=== PATIENT | male | born 1945 | race Caucasian/White ===

== ENCOUNTER 2016-11-29 10:59 | Inpatient (IN) | payer OTHER ==
[2016-11-29] VITALS (16 sets, daily range): BP systolic 70–126; BP diastolic 35–89
[~2016-11-29] VITALS: Ht 182.9 cm; Wt 131.4 kg
[2016-11-29] MEDS ORDERED: LIDOCAINE 2% JELLY 11ml (GLYDO) ONE (11:30)
[2016-11-29] MEDS ORDERED: LIDOCAINE 2% JELLY 11ml (GLYDO) UR ONE (12:00)
[2016-11-29 12:08] LABS: CONDITION Y; DEFINITIVE SEE PRINTOUT; Hematocrit 39.2 % (41.0-53.0); Hemoglobin 13.2 g/dL (13.5-17.5); Mean Corpuscular Hgb Conc. 33.6 g/dL (32.0-36.0); Mean Corpuscular Volume 92.3 fL (80.0-100.0); Mean Platelet Volume 11.4 fL (7.4-10.4); Platelet Count (auto) 138 10^3/uL (140-450); SUSPECT SEE PRINTOUT
[2016-11-29 12:13] LABS: White Blood Cell 51.6 10^3/uL (4.4-10.8)
[2016-11-29 12:17] LABS: Metamyelocytes % 0; Myelocytes % 0; Promyelocytes % 0; Reactive Lymphocytes 0
[2016-11-29] MEDS ORDERED: SODIUM CHLORIDE 0.9% 1,000 ML IVB ONE (12:21)
[2016-11-29 12:38] LABS: Albumin 3.8 g/dL (3.4-5.0); Alkaline Phosphatase 65 U/L (45-117); Anion Gap 18 (5-15); Aspartate Aminotransferase 32 U/L (15-37); BUN/Creatinine Ratio 22.3; Bilirubin, Total 0.5 mg/dL (0.2-1.0); Calcium 8.9 mg/dL (8.5-10.1); Carbon Dioxide 19 mmol/L (21-32); Chloride 94 mmol/L (98-107); GFR African American 16 mL/min; GFR Non-African American 13 mL/min; Glucose 249 mg/dL (74-106); Sodium 131 mmol/L (136-145); Total Protein 7.4 g/dL (6.4-8.2)
[2016-11-29 13:03] LABS: Blood Urea Nitrogen 106 mg/dL (7-18); Potassium 7.5 mmol/L (3.5-5.1)
[2016-11-29 13:10] LABS: INR 1.04 (0.9-1.15); Partial Thromboplastin Time 24.9 sec (22.64-33.71); Prothrombin Time 11.3 sec (9.37-12.3)
[2016-11-29] MEDS ORDERED: cefTRIAXone 1GM/50ML D5W 50 ML IV ONE (13:15)
[2016-11-29] MEDS ORDERED: DEXTROSE (50%) 50ML SYRG IV ONE (13:15)
[2016-11-29] MEDS ORDERED: InsuLIN REG 1unit/0.01ml Soln (100units/ml) IV ONE ×3 (13:15→18:00)
[2016-11-29 13:36] LABS: Platelet Estimate Adequate
[2016-11-29] MEDS ORDERED: SODIUM CHLORIDE 0.9% 1,000 ML IV ONE ×2 (13:45→14:15)
[2016-11-29] MEDS ORDERED: PIPERACILLIN-TAZOB 2.25GM 50 ML IV ONE (14:00)
[2016-11-29] MEDS ORDERED: SODIUM CHLORIDE 0.9% 1,000 ML IV SCH ×2 (14:01→15:30)
[2016-11-29 14:13] LABS: Lactic Acid w/Reflex 4.4 mmol/L (0.4-2.0)
[2016-11-29] MEDS ORDERED: LORazepam 0.5 MG TAB PO PRN (14:15)
[2016-11-29] MEDS ORDERED: MORPHINE SULF INJ 2 MG/ML SYRINGE 1ML IV PRN ×2 (14:15)
[2016-11-29] MEDS ORDERED: PANTOPRAZOLE 40 MG/10 ML VIAL IV ONE (14:15)
[2016-11-29] MEDS ORDERED: SODIUM POLYSTYRENE SULF 15GM/60ML SUSP PO ONE (14:15)
[2016-11-29] MEDS ORDERED: LACTULOSE 20Gm/30ML SOLN PO PRN (14:15)
[2016-11-29] MEDS ORDERED: ALBUTEROL SULF 2.5 MG/0.5ML(0.5%) NEB SOLN NEB PRN (14:15)
[2016-11-29] MEDS ORDERED: ALBUTEROL SULF 2.5 MG/0.5ML(0.5%) NEB SOLN NEB ONE (14:15)
[2016-11-29] MEDS ORDERED: NITROGLYCERIN 0.4 MG SL TAB SL PRN (14:15)
[2016-11-29] MEDS ORDERED: PROMETHAZINE HCL 25 MG/ML 1ML IV PRN (14:15)
[2016-11-29] MEDS ORDERED: TEMAZEPAM 15 MG CAP PO PRN (14:15)
[2016-11-29] MEDS ORDERED: ACETAMINOPHEN 500 MG TAB PO PRN (14:15)
[2016-11-29] MEDS ORDERED: HYDROcodone-ACET 5/325MG TAB PO PRN (14:15)
[2016-11-29] MEDS ORDERED: DEXTROSE (50%) 50ML SYRG IV PRN (14:15)
[2016-11-29] MEDS ORDERED: SODIUM BICARBONATE 8.4 % INJ 50ML VIAL IV ONE ×2 (14:15→21:15)
[2016-11-29 14:23] LABS: REFLEX LACTIC ACID YES OR NO YES
[2016-11-29] MEDS ORDERED: ENOXAPARIN SOD 30 MG/0.3 ML SYRINGE SC ONE (14:30)
[2016-11-29 14:46] LABS: Allen Test Yes; Base Excess -13.1 mmol/L (-2.0-2.0); Blood 02Sat 92.2 % (96-100); Blood COHb 0.1 % (0.5-1.5); Blood MetHb 0.5 % (0.0-1.5); HCO3 16.2 mmol/L (22-26.0); HHb 7.8 % (0.0-5.0); MODE NASAL CANNULA; O2Hb 91.6 % (94.0-97.0); PCO2 52.4 mmHg (35.0-45.0); PCO2(T) 52.4 mmHg (35.0-45.0); PO2 83.5 mmHg (80.0-100.0); PO2(T) 83.5 mmHg (80.0-100.0); Room 1021-ERT; Sample Type Arterial; pH 7.108 (7.350-7.450)
[2016-11-29] MEDS ORDERED: NOREPINEPHRINE BITARTRATE 250 ML IV ONE (14:47)
[2016-11-29] MEDS: NOREPINEPHRINE BITARTRATE 250 ML IV SCH (14:47)
[2016-11-29] MEDS: PIPERACILLIN-TAZOB 2.25GM 50 ML IV SCH ×2 (14:57→22:22)
[2016-11-29] MEDS: InsuLIN REG 1unit/0.01ml Soln (100units/ml) SC SCH ×3 (14:58→23:38)
[2016-11-29] MEDS ORDERED: ETOMIDATE (2MG/ML) 20ML VIAL IV ONE ×2 (15:08→15:30)
[2016-11-29] MEDS ORDERED: SUCCINYLCHOLINE CHLORIDE 20 MG/ML 10ML VIAL IV ONE ×2 (15:08→15:30)
[2016-11-29] MEDS ORDERED: SODIUM BICARBONATE 8.4% INJ 50ML SYRINGE IV ONE (15:15)
[2016-11-29] MEDS ORDERED: MIDAZOLAM DRIP 50 mg/50mL 50 ML IV ONE (15:22)
[2016-11-29] MEDS: MIDAZOLAM DRIP 50 mg/50mL 50 ML IV SCH (15:22)
[2016-11-29] MEDS: ACCU-CHEK COMFORT CURVE STRIP VI SCH ×3 (16:47→23:38)
[2016-11-29] MEDS ORDERED: ALBUMIN 25% 100 ML IV ONE ×2 (16:50→17:00)
[2016-11-29] MEDS ORDERED: VASOPRESSIN 20 UNIT/ML ONE (16:52)
[2016-11-29] MEDS ORDERED: SODIUM BICARBONATE 50ML VIAL 100 ML in D5W 5% 1,000 ML IV SCH (17:00)
[2016-11-29] MEDS ORDERED: VASOPRESSIN 50 UNITS in SODIUM CHL 0.9% 247.5 ML IV SCH (17:00)
[2016-11-29 17:15] LABS: BUN/Creatinine Ratio 21.4; Calcium 6.5 mg/dL (8.5-10.1)
[2016-11-29] MEDS ORDERED: BUMETANIDE (0.25 MG/ML) INJ 10ML IV ONE (17:15)
[2016-11-29] MEDS: LINEZOLID 600MG/300ML 300 ML IV SCH ×2 (17:19→23:00)
[2016-11-29] MEDS: VASOPRESSIN 50 UNITS in SODIUM CHL 0.9% 247.5 ML IV SCH (17:20)
[2016-11-29 17:25] LABS: Potassium 7.3 mmol/L (3.5-5.1)
[2016-11-29 17:51] LABS: Urine Bilirubin Negative (Negative); Urine Blood 1+ /uL (Negative); Urine Color Yellow (Yellow); Urine Glucose TRACE mg/dL (Normal); Urine Hyaline Cast MOD /lpf (0 - 2); Urine Ketone Negative (Negative); Urine Mucus FEW (None Seen); Urine Nitrite Negative (Negative); Urine RBC 2 /hpf (0 - 3); Urine Squamous Epithelial Cell FEW /hpf (<5); Urine Urobilinogen Normal (Negative)
[2016-11-29] MEDS ORDERED: SODIUM POLYSTYRENE SULF 15GM/60ML SUSP PR ONE (18:00)
[2016-11-29 18:07] LABS: Temperature: 23.5 C (20.0-25.0)
[2016-11-29] MEDS: ALBUTEROL SULF 2.5 MG/0.5ML(0.5%) NEB SOLN NEB SCH (18:33)
[2016-11-29] MEDS: IPRATROPIUM BROM 0.5 MG/2.5ML INH SOL NEB SCH (18:33)
[2016-11-29 19:00] LABS: Uric Acid 10.7 mg/dL (3.5-7.2)
[2016-11-29] MEDS: SODIUM BICARBONATE 50ML VIAL 150 ML in D5W 5% 1,000 ML IV SCH (19:30)
[2016-11-29] MEDS ORDERED: METF-370 PO (20:44)
[2016-11-29] MEDS ORDERED: LISI-646 PO (20:44)
[2016-11-29] MEDS ORDERED: MORP30TA PO (20:44)
[2016-11-29] MEDS ORDERED: ASPI81TA27 PO (20:44)
[2016-11-29] MEDS ORDERED: NORT25CA PO (20:44)
[2016-11-29] MEDS ORDERED: DIAZ10TA3 PO (20:44)
[2016-11-29] MEDS ORDERED: MULT1TAB95 PO (20:44)
[2016-11-29] MEDS ORDERED: DOCU-80 PO (20:44)
[2016-11-29] MEDS ORDERED: VENL75TA PO (20:44)
[2016-11-29 20:51] LABS: Allen Test Modified; Base Excess -17.6 mmol/L (-2.0-2.0); Blood 02Sat 95.5 % (96-100); Blood COHb 0.3 % (0.5-1.5); Blood MetHb 0.4 % (0.0-1.5); CPAP / PEEP 0; HCO3 12.1 mmol/L (22-26.0); HHb 4.5 % (0.0-5.0); MODE VENT - A/C; O2Hb 94.8 % (94.0-97.0); PO2 101.3 mmHg (80.0-100.0); PO2(T) 101.3 mmHg (80.0-100.0); Sample Type Arterial; pH 7.056 (7.350-7.450)
[2016-11-29] MEDS: PHENYLEPHRINE INJ 20 MG in SODIUM CHL 0.9% 250 ML IV SCH (21:00)
[2016-11-29] MEDS ORDERED: SODIUM BICARBONATE 8.4% INJ 50ML SYRINGE ONE (21:00)
[2016-11-29] MEDS ORDERED: ATROPINE SULFATE 0.4 MG/1 ML VIAL ONE (22:15)
[2016-11-29 23:49] LABS: DEFINITIVE SEE PRINTOUT; Hematocrit 35.4 % (41.0-53.0); Mean Corpuscular Hemoglobin 30.4 pg (28.0-32.0); Mean Corpuscular Hgb Conc. 31.1 g/dL (32.0-36.0); Mean Corpuscular Volume 97.9 fL (80.0-100.0); Mean Platelet Volume 10.9 fL (7.4-10.4); Platelet Count (auto) 94 10^3/uL (140-450); Red Cell Distribution Width 15.4 % (11.6-16.0); SUSPECT SEE PRINTOUT
[2016-11-30] VITALS (102 sets, daily range): BP systolic 78–140; BP diastolic 29–101
[2016-11-30] LABS: Calcium 6.5 mg/dL (8.5-10.1); Magnesium 2.5 mg/dL (1.6-2.6)
[2016-11-30 00:01] LABS: Promyelocytes % 0; Reactive Lymphocytes 0
[2016-11-30 00:02] LABS: BUN/Creatinine Ratio 22.3
[2016-11-30 00:07] LABS: Potassium 7.7 mmol/L (3.5-5.1)
[2016-11-30] MEDS: InsuLIN R (HUMAN) 100 UNITS in SODIUM CHL 0.9% 99 ML IV SCH ×2 (00:31→19:00)
[2016-11-30] MEDS ORDERED: DEXTROSE (50%) 50ML SYRG IV PRN (00:45)
[2016-11-30] MEDS ORDERED: ALBUTEROL SULF 2.5 MG/0.5ML(0.5%) NEB SOLN NEB ONE (00:45)
[2016-11-30] MEDS ORDERED: InsuLIN REG 1unit/0.01ml Soln (100units/ml) IV ONE (00:45)
[2016-11-30] MEDS ORDERED: InsuLIN REG 1unit/0.01ml Soln (100units/ml) ONE (00:47)
[2016-11-30 00:59] LABS: Hypersegmented Neutrophils Present; Metamyelocytes % 2; Myelocytes % 2
[2016-11-30 01:00] LABS: Platelet Estimate Decreased; RBC Morphology Normal
[2016-11-30] MEDS: ACCU-CHEK COMFORT CURVE STRIP VI SCH ×16 (01:00→22:30)
[2016-11-30] MEDS ORDERED: SODIUM BICARBONATE 8.4% INJ 50ML SYRINGE ONE (01:42)
[2016-11-30] MEDS ORDERED: SODIUM BICARBONATE 8.4 % INJ 50ML VIAL IV ONE (01:45)
[2016-11-30] MEDS ORDERED: PHENYLEPHRINE IV 250 ML IV ONE ×3 (02:33→06:57)
[2016-11-30] MEDS: PHENYLEPHRINE INJ 20 MG in SODIUM CHL 0.9% 250 ML IV SCH ×6 (03:00→19:00)
[2016-11-30 04:05] LABS: CONDITION Y; DEFINITIVE SEE PRINTOUT; Hematocrit 30.6 % (41.0-53.0); Hemoglobin 10.1 g/dL (13.5-17.5); Mean Corpuscular Hgb Conc. 32.9 g/dL (32.0-36.0); Mean Corpuscular Volume 94.1 fL (80.0-100.0); Mean Platelet Volume 10.8 fL (7.4-10.4); Platelet Count (auto) 112 10^3/uL (140-450); Red Cell Distribution Width 16.6 % (11.6-16.0); SUSPECT SEE PRINTOUT
[2016-11-30 04:22] LABS: White Blood Cell 59.5 10^3/uL (4.4-10.8)
[2016-11-30 04:23] LABS: Metamyelocytes % 0; Myelocytes % 0; Promyelocytes % 0; Reactive Lymphocytes 0
[2016-11-30 04:39] LABS: Albumin 2.7 g/dL (3.4-5.0); Alkaline Phosphatase 48 U/L (45-117); Anion Gap 15 (5-15); Aspartate Aminotransferase 68 U/L (15-37); Bilirubin, Total 0.3 mg/dL (0.2-1.0); Calcium 6.4 mg/dL (8.5-10.1); Carbon Dioxide 20 mmol/L (21-32); Chloride 103 mmol/L (98-107); Cholesterol < 50 mg/dL (< 200); GFR African American 19 mL/min; GFR Non-African American 16 mL/min; Glucose 266 mg/dL (74-106); HDL Cholesterol 15 mg/dL (40-59); LDL Cholesterol 17 mg/dL (< 100); Potassium 5.1 mmol/L (3.5-5.1); Sodium 138 mmol/L (136-145); Total Protein 5.4 g/dL (6.4-8.2); Triglycerides 224 mg/dL (< 150)
[2016-11-30] MEDS: SODIUM BICARBONATE 50ML VIAL 150 ML in D5W 5% 1,000 ML IV SCH (04:42)
[2016-11-30 04:51] LABS: Blood Urea Nitrogen 93 mg/dL (7-18)
[2016-11-30] MEDS: IPRATROPIUM BROM 0.5 MG/2.5ML INH SOL NEB SCH ×4 (05:54→18:32)
[2016-11-30] MEDS: ALBUTEROL SULF 2.5 MG/0.5ML(0.5%) NEB SOLN NEB SCH ×4 (05:54→18:32)
[2016-11-30] MEDS: PIPERACILLIN-TAZOB 2.25GM 50 ML IV SCH ×3 (06:20→21:39)
[2016-11-30 06:39] LABS: Hypersegmented Neutrophils Present
[2016-11-30 06:41] LABS: Platelet Estimate Decreased
[2016-11-30 06:43] LABS: RBC Morphology Normal
[2016-11-30 07:37] LABS: Allen Test Modified; Base Excess -1.4 mmol/L (-2.0-2.0); Blood 02Sat 90.6 % (96-100); Blood COHb 0.4 % (0.5-1.5); Blood MetHb 0.4 % (0.0-1.5); HCO3 24.3 mmol/L (22-26.0); HHb 9.3 % (0.0-5.0); MODE VENT - A/C; O2Hb 89.9 % (94.0-97.0); PCO2 45.3 mmHg (35.0-45.0); PCO2(T) 45.3 mmHg (35.0-45.0); PIP 18; PO2 60.6 mmHg (80.0-100.0); PO2(T) 60.6 mmHg (80.0-100.0); Sample Type Arterial; pH 7.348 (7.350-7.450)
[2016-11-30] MEDS: LINEZOLID 600MG/300ML 300 ML IV SCH ×2 (09:52→21:39)
[2016-11-30] MEDS: PANTOPRAZOLE 40 MG/10 ML VIAL IV SCH (09:52)
[2016-11-30] MEDS ORDERED: ENOXAPARIN SOD 30 MG/0.3 ML SYRINGE SC SCH ×2 (10:00)
[2016-11-30] MEDS ORDERED: AZITHROMYCIN 500MG/D5W 250ML 250 ML IV SCH ×2 (10:00)
[2016-11-30] MEDS: fentaNYL Drip 2500mCg/250mlNS 250 ML IV SCH (14:36)
[2016-11-30] MEDS ORDERED: CALCIUM GLUC 4.65meq/50ml D5AE 50 ML IV ONE (14:45)
[2016-11-30] MEDS: SODIUM BICARBONATE 50ML VIAL 100 ML in SOD CHL 0.45% 1,000 ML IV SCH (15:15)
[2016-11-30] MEDS: MIDAZOLAM DRIP 50 mg/50mL 50 ML IV SCH ×2 (15:40→20:00)
[2016-11-30] MEDS: NOREPINEPHRINE BITARTRATE 250 ML IV SCH ×2 (15:40→20:00)
[2016-11-30] MEDS ORDERED: SODIUM BICARBONATE 50ML VIAL 150 ML in D5W 5% 1,000 ML IV SCH (17:00)
[2016-11-30] MEDS: VASOPRESSIN 50 UNITS in SODIUM CHL 0.9% 247.5 ML IV SCH (17:00)
[2016-11-30 22:48] LABS: CONDITION Y; DEFINITIVE SEE PRINTOUT; Hematocrit 29.5 % (41.0-53.0); Hemoglobin 9.9 g/dL (13.5-17.5); Mean Corpuscular Hemoglobin 31.1 pg (28.0-32.0); Mean Corpuscular Hgb Conc. 33.6 g/dL (32.0-36.0); Mean Corpuscular Volume 92.6 fL (80.0-100.0); Mean Platelet Volume 11.8 fL (7.4-10.4); Platelet Count (auto) 83 10^3/uL (140-450); Red Cell Distribution Width 16.5 % (11.6-16.0); SUSPECT SEE PRINTOUT
[2016-11-30 22:54] LABS: White Blood Cell 41.9 10^3/uL (4.4-10.8)
[2016-11-30 22:56] LABS: Metamyelocytes % 0; Promyelocytes % 0; Reactive Lymphocytes 0
[2016-11-30 23:07] LABS: BUN/Creatinine Ratio 23.4; Calcium 6.1 mg/dL (8.5-10.1)
[2016-11-30 23:09] LABS: Potassium 5.6 mmol/L (3.5-5.1)
[2016-12-01] VITALS (107 sets, daily range): BP systolic 86–145; BP diastolic 31–68
[2016-12-01] MEDS: ACCU-CHEK COMFORT CURVE STRIP VI SCH ×12 (00:15→23:19)
[2016-12-01] MEDS: PHENYLEPHRINE INJ 20 MG in SODIUM CHL 0.9% 250 ML IV SCH ×7 (00:21→17:03)
[2016-12-01] MEDS ORDERED: DILTIAZEM HCL 25 MG/5 ML VIAL IV ONE (00:30)
[2016-12-01 00:49] LABS: Hypersegmented Neutrophils Present; Myelocytes % 1
[2016-12-01 00:50] LABS: Anisocytosis Slight; Large Platelets FEW; Platelet Estimate Decrea
[2016-12-01] MEDS: SODIUM BICARBONATE 50ML VIAL 100 ML in SOD CHL 0.45% 1,000 ML IV SCH (01:23)
[2016-12-01] MEDS: NOREPINEPHRINE BITARTRATE 250 ML IV SCH (01:23)
[2016-12-01] MEDS ORDERED: AMIODARONE HCL 900 MG in DEXTROSE 500 ML IV SCH (02:34)
[2016-12-01] MEDS ORDERED: AMIODARONE HCL (50 MG/ ML) 3 ML VIAL IV ONE ×2 (02:44→02:46)
[2016-12-01 03:38] LABS: CONDITION Y; DEFINITIVE SEE PRINTOUT; Hematocrit 30.4 % (41.0-53.0); Hemoglobin 10.1 g/dL (13.5-17.5); Mean Corpuscular Hgb Conc. 33.3 g/dL (32.0-36.0); Mean Platelet Volume 11.6 fL (7.4-10.4); Platelet Count (auto) 85 10^3/uL (140-450); Red Cell Distribution Width 16.6 % (11.6-16.0); SUSPECT SEE PRINTOUT
[2016-12-01 03:53] LABS: White Blood Cell 42.5 10^3/uL (4.4-10.8)
[2016-12-01 03:54] LABS: Metamyelocytes % 0; Myelocytes % 0; Promyelocytes % 0; Reactive Lymphocytes 0
[2016-12-01 04:00] LABS: Albumin 2.2 g/dL (3.4-5.0); BUN/Creatinine Ratio 21.5; Calcium 6.3 mg/dL (8.5-10.1); Potassium 5.3 mmol/L (3.5-5.1)
[2016-12-01 04:02] LABS: Bilirubin, Total 0.6 mg/dL (0.2-1.0); Total Protein 5.3 g/dL (6.4-8.2)
[2016-12-01 04:46] LABS: Anisocytosis Slight; Hypersegmented Neutrophils Present; Platelet Estimate Decreased
[2016-12-01] MEDS: PIPERACILLIN-TAZOB 2.25GM 50 ML IV SCH ×3 (06:00→23:00)
[2016-12-01] MEDS: ALBUTEROL SULF 2.5 MG/0.5ML(0.5%) NEB SOLN NEB SCH ×4 (06:41→19:01)
[2016-12-01] MEDS: IPRATROPIUM BROM 0.5 MG/2.5ML INH SOL NEB SCH ×4 (06:41→19:00)
[2016-12-01 07:43] LABS: Allen Test Yes; Base Excess 1.6 mmol/L (-2.0-2.0); Blood 02Sat 95.9 % (96-100); Blood COHb 0.4 % (0.5-1.5); Blood MetHb 0.2 % (0.0-1.5); HCO3 25.8 mmol/L (22-26.0); HHb 4.1 % (0.0-5.0); MODE VENT - A/C; O2Hb 95.3 % (94.0-97.0); PO2 87.1 mmHg (80.0-100.0); PO2(T) 87.1 mmHg (80.0-100.0); Sample Type Arterial; pH 7.438 (7.350-7.450)
[2016-12-01] MEDS: AMIODARONE HCL 900 MG in DEXTROSE 500 ML IV SCH (09:00)
[2016-12-01] MEDS: PANTOPRAZOLE 40 MG/10 ML VIAL IV SCH (10:27)
[2016-12-01] MEDS: LINEZOLID 600MG/300ML 300 ML IV SCH ×2 (10:27→22:00)
[2016-12-01] MEDS ORDERED: DEXTROSE (50%) 50ML SYRG IV PRN (13:15)
[2016-12-01] MEDS ORDERED: CALCIUM GLUC 4.65meq/50ml D5AE 50 ML IV ONE (13:15)
[2016-12-01] MEDS ORDERED: INSULIN DETEMIR(LEVEMIR) 1unit/0.01ml Soln (100units/ml) SC ONE (13:15)
[2016-12-01 14:27] LABS: Lactic Acid w/Reflex 2.8 mmol/L (0.4-2.0)
[2016-12-01] MEDS: SODIUM CHLORIDE 0.9% 1,000 ML IV SCH ×2 (14:30→20:28)
[2016-12-01] MEDS: fentaNYL Drip 2500mCg/250mlNS 250 ML IV SCH (14:51)
[2016-12-01 14:59] LABS: REFLEX LACTIC ACID YES OR NO YES
[2016-12-01] MEDS: VASOPRESSIN 50 UNITS in SODIUM CHL 0.9% 247.5 ML IV SCH (17:00)
[2016-12-01] MEDS: InsuLIN REG 1unit/0.01ml Soln (100units/ml) SC SCH ×2 (18:27→23:19)
[2016-12-01] MEDS: MIDAZOLAM DRIP 50 mg/50mL 50 ML IV SCH (20:27)
[2016-12-01] MEDS: INSULIN DETEMIR(LEVEMIR) 1unit/0.01ml Soln (100units/ml) SC SCH (23:20)
[2016-12-02] VITALS (101 sets, daily range): BP systolic 88–141; BP diastolic 42–101
[2016-12-02] MEDS: IPRATROPIUM BROM 0.5 MG/2.5ML INH SOL NEB SCH ×4 (00:24→18:49)
[2016-12-02 04:32] LABS: CONDITION Y; DEFINITIVE SEE PRINTOUT; Hematocrit 26.9 % (41.0-53.0); Mean Corpuscular Hgb Conc. 33.3 g/dL (32.0-36.0); Mean Corpuscular Volume 93.2 fL (80.0-100.0); Mean Platelet Volume 12.4 fL (7.4-10.4); Platelet Count (auto) 62 10^3/uL (140-450); Red Cell Distribution Width 16.8 % (11.6-16.0); SUSPECT SEE PRINTOUT; White Blood Cell 26.1 10^3/uL (4.4-10.8)
[2016-12-02 04:40] LABS: Metamyelocytes % 0; Myelocytes % 0; Promyelocytes % 0; Reactive Lymphocytes 0
[2016-12-02 05:01] LABS: Albumin 1.8 g/dL (3.4-5.0); Calcium 6.4 mg/dL (8.5-10.1); Potassium 4.4 mmol/L (3.5-5.1)
[2016-12-02 05:04] LABS: BUN/Creatinine Ratio 19.6
[2016-12-02 05:06] LABS: Bilirubin, Total 0.7 mg/dL (0.2-1.0)
[2016-12-02 05:33] LABS: Platelet Estimate Decreased; Polychromasia Slight
[2016-12-02 05:34] LABS: Large Platelets FEW
[2016-12-02] MEDS: ACCU-CHEK COMFORT CURVE STRIP VI SCH ×3 (05:51→17:22)
[2016-12-02] MEDS: InsuLIN REG 1unit/0.01ml Soln (100units/ml) SC SCH ×3 (05:52→17:31)
[2016-12-02] MEDS: ALBUTEROL SULF 2.5 MG/0.5ML(0.5%) NEB SOLN NEB SCH ×4 (06:00→18:00)
[2016-12-02 06:04] LABS: Lactic Acid w/Reflex 2.4 mmol/L (0.4-2.0)
[2016-12-02] MEDS: PIPERACILLIN-TAZOB 2.25GM 50 ML IV SCH (06:25)
[2016-12-02 06:34] LABS: REFLEX LACTIC ACID YES OR NO NO
[2016-12-02 07:46] LABS: Blood COHb 0.6 % (0.5-1.5); Blood MetHb 0.1 % (0.0-1.5); HCO3 25.1 mmol/L (22-26.0); IE RATIO 1.2.1; MODE VENT - A/C; O2Hb 92.3 % (94.0-97.0); PCO2 42.7 mmHg (35.0-45.0); PCO2(T) 42.7 mmHg (35.0-45.0); PIP 19; PO2 74.9 mmHg (80.0-100.0); PO2(T) 74.9 mmHg (80.0-100.0); Sample Type Arterial; Spont Vt 535; pH 7.387 (7.350-7.450)
[2016-12-02] MEDS: PHENYLEPHRINE INJ 20 MG in SODIUM CHL 0.9% 250 ML IV SCH ×2 (09:45→12:32)
[2016-12-02] MEDS: PANTOPRAZOLE 40 MG/10 ML VIAL IV SCH (10:15)
[2016-12-02] MEDS: LINEZOLID 600MG/300ML 300 ML IV SCH (10:15)
[2016-12-02] MEDS: SODIUM CHLORIDE 0.9% 1,000 ML IV SCH ×2 (10:27→19:15)
[2016-12-02] MEDS: INSULIN DETEMIR(LEVEMIR) 1unit/0.01ml Soln (100units/ml) SC SCH ×2 (10:27→22:11)
[2016-12-02] MEDS: MIDAZOLAM DRIP 50 mg/50mL 50 ML IV SCH (12:37)
[2016-12-02] MEDS ORDERED: PIPERACILLIN-TAZOB 3.375GM 100 ML IV SCH (12:50)
[2016-12-02] MEDS: AMIODARONE HCL 900 MG in DEXTROSE 500 ML IV SCH (13:00)
[2016-12-02] MEDS: PIPERACILLIN-TAZOB 3.375GM 100 ML IV SCH ×2 (13:05→17:30)
[2016-12-02] MEDS: fentaNYL Drip 2500mCg/250mlNS 250 ML IV SCH (14:36)
[2016-12-02] MEDS: NOREPINEPHRINE BITARTRATE 250 ML IV SCH (15:00)
[2016-12-02] MEDS: CLINDAMYCIN 600MG IV 50 ML IV SCH ×2 (16:47→22:11)
[2016-12-02] MEDS: VASOPRESSIN 50 UNITS in SODIUM CHL 0.9% 247.5 ML IV SCH (17:00)
[2016-12-02] MEDS ORDERED: GASTROGRAFIN 30 ML SOL ONE (17:44)
[2016-12-03] VITALS (93 sets, daily range): BP systolic 109–144; BP diastolic 43–72
[2016-12-03] MEDS: IPRATROPIUM BROM 0.5 MG/2.5ML INH SOL NEB SCH ×4 (00:47→18:52)
[2016-12-03] MEDS: ALBUTEROL SULF 2.5 MG/0.5ML(0.5%) NEB SOLN NEB SCH ×4 (00:47→18:53)
[2016-12-03 04:36] LABS: CONDITION Y; DEFINITIVE SEE PRINTOUT; Hemoglobin 8.2 g/dL (13.5-17.5); Mean Corpuscular Hemoglobin 31.2 pg (28.0-32.0); Mean Corpuscular Hgb Conc. 32.9 g/dL (32.0-36.0); Mean Corpuscular Volume 94.8 fL (80.0-100.0); Mean Platelet Volume 13.2 fL (7.4-10.4); Platelet Count (auto) 58 10^3/uL (140-450); Red Cell Distribution Width 17.2 % (11.6-16.0); SUSPECT SEE PRINTOUT; White Blood Cell 20.1 10^3/uL (4.4-10.8)
[2016-12-03 04:40] LABS: Metamyelocytes % 0; Myelocytes % 0; Promyelocytes % 0; Reactive Lymphocytes 0
[2016-12-03 04:50] LABS: Albumin 1.7 g/dL (3.4-5.0); Calcium 6.8 mg/dL (8.5-10.1); Potassium 4.1 mmol/L (3.5-5.1)
[2016-12-03 04:53] LABS: BUN/Creatinine Ratio 21.8
[2016-12-03 04:55] LABS: Bilirubin, Total 0.7 mg/dL (0.2-1.0); Total Protein 5.1 g/dL (6.4-8.2)
[2016-12-03] MEDS: SODIUM CHLORIDE 0.9% 1,000 ML IV SCH ×2 (05:15→15:15)
[2016-12-03] MEDS: ACCU-CHEK COMFORT CURVE STRIP VI SCH ×4 (06:00→18:28)
[2016-12-03] MEDS: InsuLIN REG 1unit/0.01ml Soln (100units/ml) SC SCH ×4 (06:00→18:30)
[2016-12-03] MEDS: PIPERACILLIN-TAZOB 3.375GM 100 ML IV SCH ×2 (06:03)
[2016-12-03] MEDS: CLINDAMYCIN 600MG IV 50 ML IV SCH (06:03)
[2016-12-03 06:30] LABS: Platelet Estimate Decreased
[2016-12-03 06:31] LABS: Hypersegmented Neutrophils Present; Polychromasia Slight; Stomatocytes Few
[2016-12-03] MEDS: AMIODARONE HCL 900 MG in DEXTROSE 500 ML IV SCH (08:34)
[2016-12-03 09:07] LABS: Allen Test Modified; Base Excess 1.2 mmol/L (-2.0-2.0); Blood 02Sat 95.6 % (96-100); Blood COHb 1.1 % (0.5-1.5); Blood MetHb 0.1 % (0.0-1.5); HCO3 26.5 mmol/L (22-26.0); HHb 4.3 % (0.0-5.0); MODE VENT - A/C; O2Hb 94.5 % (94.0-97.0); PCO2 45.2 mmHg (35.0-45.0); PCO2(T) 45.2 mmHg (35.0-45.0); Sample Type Arterial; pH 7.386 (7.350-7.450)
[2016-12-03] MEDS ORDERED: METOCLOPRAMIDE HCL 5MG/ml INJ 2ml VIAL IV ONE (09:15)
[2016-12-03] MEDS: INSULIN DETEMIR(LEVEMIR) 1unit/0.01ml Soln (100units/ml) SC SCH (09:44)
[2016-12-03] MEDS ORDERED: PANTOPRAZOLE 40 MG/10 ML VIAL IV SCH (10:00)
[2016-12-03] MEDS ORDERED: MEROPENEM 1GM IVPB 100 ML IV SCH (14:00)
[2016-12-03] MEDS ORDERED: ALBUMIN 25% IV ONE (14:00)
[2016-12-03] MEDS ORDERED: ALBUMIN 25% 100 ML IV SCH ×2 (14:00)
[2016-12-03] MEDS ORDERED: ALBUMIN 25% IV SCH (14:20)
[2016-12-03] MEDS: fentaNYL Drip 2500mCg/250mlNS 250 ML IV SCH (14:36)
[2016-12-03] MEDS ORDERED: ALBUMIN 25% 100 ML IV ONE (14:48)
[2016-12-03] MEDS: NOREPINEPHRINE BITARTRATE 250 ML IV SCH (15:00)
[2016-12-03] MEDS: VASOPRESSIN 50 UNITS in SODIUM CHL 0.9% 247.5 ML IV SCH (17:00)
[2016-12-03 18:06] LABS: Vitamin D 25-Hydroxy 12 ng/mL (.); Vitamin D-2 25-Hydroxy <1.0 ng/mL (.)
[2016-12-03] MEDS: MIDAZOLAM DRIP 50 mg/50mL 50 ML IV SCH (18:27)
== END 2016-12-03 20:48 | disposition short-term general hospital (02) | DRG 871 ==
LOC: ER 10:59 → TELE 11:00 → ICU WEST 16:22
PROVIDERS: ADMIT Internal Medicine; ATTEND Internal Medicine
PROC: 5A1945Z Respiratory Ventilation, 24-96 Consecutive Hours (ICD-10-PCS; principal; 2016-11-29)
PROC: 0BH17EZ Insertion of Endotracheal Airway into Trachea, Via Natural or Artificial Opening (ICD-10-PCS; 2016-11-29)
PROC: 02HV33Z Insertion of Infusion Device into Superior Vena Cava, Percutaneous Approach (ICD-10-PCS; 2016-11-29)
DX: A41.9 Sepsis, unspecified organism (principal); R65.21 Severe sepsis with septic shock; N17.0 Acute kidney failure with tubular necrosis; J96.90 Respiratory failure, unspecified, unspecified whether with hypoxia or hypercapnia; G92 Toxic encephalopathy; D69.6 Thrombocytopenia, unspecified; E11.42 Type 2 diabetes mellitus with diabetic polyneuropathy; J15.8 Pneumonia due to other specified bacteria; J98.11 Atelectasis; I69.351 Hemiplegia and hemiparesis following cerebral infarction affecting right dominant side; E66.01 Morbid (severe) obesity due to excess calories; E78.5 Hyperlipidemia, unspecified; E87.5 Hyperkalemia; G47.33 Obstructive sleep apnea (adult) (pediatric); G89.4 Chronic pain syndrome; I07.1 Rheumatic tricuspid insufficiency; I10 Essential (primary) hypertension; I48.91 Unspecified atrial fibrillation; I70.0 Atherosclerosis of aorta; M48.06 Spinal stenosis, lumbar region; Z79.82 Long term (current) use of aspirin; Z82.3 Family history of stroke; Z82.49 Family history of ischemic heart disease and other diseases of the circulatory system; Z85.828 Personal history of other malignant neoplasm of skin; Z87.891 Personal history of nicotine dependence; Z88.1 Allergy status to other antibiotic agents; Z68.39 Body mass index [BMI] 39.0-39.9, adult
CPT/HCPCS: 31500; 36415; 36600; 51702; 70450; 71010; 71250; 74176; 76775; 80048; 80053; 80061; 80307; 81001; 82270; 82306; 82550; 82570; 82607; 82746; 82805; 82962; 83036; 83605; 83615; 83735; 83970; 84100; 84156; 84300; 84443; 84484; 84550; 85007; 85027; 85610; 85652; 85730; 86850; 86900; 86901; 87040; 87070; 87077; 87081; 87086; 87186; 87205; 93005; 93306; 94002; 94003; 94640; 94645; 95819; 96361; 96365; 96367; 96372; 96375; 99291; C9113; J0330; J0461; J0610; J0696; J1815; J2185; J2250; J2543; J3010; J3490